=== PATIENT | male | born 1935 | race Caucasian/White ===

== ENCOUNTER 2023-01-14 12:00 | Day surgery (SDC) | payer MEDICARE, MEDICAID ==
[2023-01-07 09:43] LABS: BASOPHILS # (AUTO) 0.1 X10'3 (0-0.2); BASOPHILS % (AUTO) 1.4 % (0-1); EOSINOPHILS # (AUTO) 0.2 X10'3 (0-0.9); EOSINOPHILS % (AUTO) 3.3 % (0-6); LYMPHOCYTES # (AUTO) 0.7 X10'3 (1.1-4.8); LYMPHOCYTES % (AUTO) 14.3 % (21-51); MEAN CORPUSCULAR HEMOGLOBIN 32.5 PG (27.0-31.0); MEAN CORPUSCULAR HGB CONC 33.3 g/dL (33.0-36.5); MEAN CORPUSCULAR VOLUME 97.6 FL (78-98); MEAN PLATELET VOLUME 8.6 FL (7.4-10.4); MONOCYTES # (AUTO) 0.4 X10'3 (0-0.9); MONOCYTES % (AUTO) 8.7 % (2-12); NEUTROPHILS # (AUTO) 3.5 X10'3 (1.8-7.7); NEUTROPHILS % (AUTO) 72.3 % (42-75); PRE OP HEMATOCRIT 40.9 % (42.0-52.0); PRE OP HEMOGLOBIN 13.6 g/dL (14.0-17.9); PRE OP PLATELET COUNT 222 X10'3 (140-440); PRE OP WHITE BLOOD COUNT 4.9 10'3 (4.8-10.8); RED BLOOD COUNT 4.19 X10'6 (4.70-6.10); RED CELL DISTRIBUTION WIDTH 13.5 % (11.5-14.5)
[2023-01-07 10:13] LABS: ALBUMIN 3.8 G/DL (3.4-5.0); ALBUMIN/GLOBULIN RATIO 1.2 (1.1-1.5); ALKALINE PHOSPHATASE 83 IU/L (46-116); BLOOD UREA NITROGEN 24 MG/DL (7-18); BUN/CREATININE RATIO 19.2 (10.0-20.0); CALCIUM 9.4 MG/DL (8.5-10.1); CHLORIDE 102 MMOL/L (99-107); CREATININE 1.25 MG/DL (0.60-1.10); PRE OP ALT 18 U/L (30-65); PRE OP ANION GAP 6 (8-16); PRE OP AST 17 U/L (10-37); PRE OP BILIRUB, TOTAL 0.6 MG/DL (0.0-1.0); PRE OP GLUCOSE 102 MG/DL (70-104); PRE OP POTASSIUM 4.1 MMOL/L (3.4-5.1); PRE OP SODIUM 135 MMOL/L (135-145); TOTAL CARBON DIOXIDE 26.7 MMOL/L (24-32); TOTAL PROTEIN 7.1 G/DL (6.4-8.2); eGFR 55 ML/MIN
[~2023-01-14] VITALS: Ht 170.2 cm; Wt 69.7 kg
[~2023-01-14 12:00] MED LIST: CARV25TA3 PO; DOCUMENT DATE & TIME OF BETA-BLOCKER PO ONE; EMPA10TA PO; FURO40TA4 PO; INDOCYANINE GREEN 25 MG/10 ML VIAL IV ONE; PRAV40TA3 PO; SACU1TAB7 PO; SPIR25TA5 PO; WARF1TAB83 PO; cefazolin 2gm/D5W 100mL 100 ML IV ONE; famotidine 20mg tablet PO ONE; ringers solution, lacted 1,000 ML IV SCH
[2023-01-14 12:12] VITALS: BP 132/84; PULSE 64; RESP 16; TEMP 98.9; O2SAT 96
[2023-01-14] MEDS ORDERED: morphine 2 MG/ML inj. syringe IV PRN ×2 (14:20→14:40)
[2023-01-14] MEDS ORDERED: morphine 4 MG/ML inj SYRINge IV PRN ×2 (14:20→14:40)
[2023-01-14] MEDS ORDERED: meperidine/PF 25mg/ml syringe IV PRN ×6 (14:20→14:40)
[2023-01-14] MEDS ORDERED: ondansetron/PF 4mg/2ml inj IV PRN ×2 (14:20→14:40)
[2023-01-14] MEDS ORDERED: ringers solution, lacted 1,000 ML IV SCH ×2 (14:20→14:40)
[2023-01-14] MEDS ORDERED: proCHLORperazine 10 MG/2 ml inj IV PRN ×2 (14:20→14:40)
[2023-01-14 14:38] LABS: INR 1.4 INR; PROTHROMBIN TIME 14.3 SECONDS (9.0-12.0)
[2023-01-14] MEDS ORDERED: acetaminophen 1,000mg/100ml IV 100 ML IV PRN (14:40)
[2023-01-14] MEDS ORDERED: labetalol 20mg/4ml (5mg/ml) syringe IV PRN (14:40)
[2023-01-14] MEDS ORDERED: hydrALAZINE 20mg/ml inj. IV PRN (14:40)
[2023-01-14] MEDS ORDERED: midazolam 1 mg/ML 2ml injection ONE (15:46)
[2023-01-14] MEDS ORDERED: fentaNYL /PF 50mcg/ml 5ml ampule ONE (15:46)
[2023-01-14] MEDS ORDERED: LIDOcaine 1% (10mg/ml)w/preservative inj. 20ml MDV ONE (16:04)
[2023-01-14] MEDS ORDERED: BUPIVAcaine/PF 2.5mg/ml (0.25%) 10ml vial ONE (16:05)
[2023-01-14] MEDS ORDERED: flumazenil 0.1 mg/ml inj. IV ONE (16:12)
[2023-01-14] MEDS ORDERED: sevoflurane 250ml liquid IH ONE (16:12)
[2023-01-14] MEDS ORDERED: LIDOcaine 1% (10mg/ml) 2ml vial ONE (16:50)
[2023-01-14] MEDS ORDERED: dexamethasone sod phosphate 4mg/ml inj. ONE (16:50)
[2023-01-14] MEDS ORDERED: LIDOcaine 2% (20mg/ml) 5ml vial ONE (16:50)
[2023-01-14] MEDS ORDERED: propofol inj 20 ML IV ONE (16:50)
[2023-01-14] MEDS ORDERED: rocuronium 10mg/ml inj IV ONE (16:50)
[2023-01-14] MEDS ORDERED: ondansetron/PF 4mg/2ml inj ONE (16:50)
[2023-01-14] MEDS ORDERED: LIDOcaine 1% 30ml preserv. free vial IJ ONE (16:51)
[2023-01-14] MEDS ORDERED: BUPIVAcaine/PF 2.5mg/ml (0.25%) 10ml vial IJ ONE (16:52)
[2023-01-14] MEDS ORDERED: glycopyrrolate 0.2mg/ml inj ONE (16:59)
[2023-01-14] MEDS ORDERED: neostigmine methylsulfate 1 MG/ML 10ml vial ONE (16:59)
[2023-01-14] MEDS ORDERED: sugammadex 200mg/2ml injection IV ONE (17:16)
[2023-01-14 17:26] VITALS: BP 103/67; PULSE 70; RESP 10; O2SAT 93
--- NOTE | 2023-01-14 17:26 | NUR ---
Received from [place] via [facility], accompanied by Anesthesiologist DR. GAINES and report given by Anesthesiolgist. Rock.[id number]. RIGHT RADIAL ARTERIAL LINE. 8L MASK, ORAL AIRWAY.
[2023-01-14 17:36] VITALS: BP 127/83; PULSE 70; RESP 11; O2SAT 98
[2023-01-14] MEDS ORDERED: HYDROcodone/acetaminophen 5mg/325mg tablet PO PRN (17:40)
[2023-01-14 17:46] VITALS: BP 127/82; PULSE 69; RESP 11; O2SAT 99
[2023-01-14 17:56] VITALS: BP 132/83; PULSE 70; RESP 10; O2SAT 99
--- NOTE | 2023-01-14 18:00 | NUR ---
ARTERIAL LINE REMOVED
[2023-01-14 18:06] VITALS: BP 139/84; PULSE 70; RESP 15; O2SAT 93
--- NOTE | 2023-01-14 18:36 | NUR ---
I HAVE REVIEWED D/C INSTRUCTIONS WITH PATIENT AND SON, MARCEL AND THEY HAVE VERBALIZED UNDERSTANDING OF INSTRUCTIONS. PATIENT D/C HOME WITH ALL BELONGINGS AND FAMILY GAVE TRANSPORT.
== END 2023-01-14 18:36 | disposition home or self-care (01) ==
LOC: PAS 12:00
PROVIDERS: ATTEND Surgery
DX: K80.10 Calculus of gallbladder with chronic cholecystitis without obstruction (principal); I11.0 Hypertensive heart disease with heart failure; I50.9 Heart failure, unspecified; E11.9 Type 2 diabetes mellitus without complications; I48.91 Unspecified atrial fibrillation; E78.5 Hyperlipidemia, unspecified; M19.90 Unspecified osteoarthritis, unspecified site; Z87.891 Personal history of nicotine dependence; Z79.01 Long term (current) use of anticoagulants; Z79.899 Other long term (current) drug therapy; Z95.810 Presence of automatic (implantable) cardiac defibrillator
CPT/HCPCS: 36415; 47563; 80053; 82948; 85025; 85610; J0690; J1100; J2250; J2405; J2704; J2710; J3010; J3490; J7030; J7120; Z7506; Z7508; Z7512; A4215; A4618; A6258; A7000

== ENCOUNTER 2023-06-12 08:50 | Inpatient (IN) | payer MEDICARE, MEDICAID ==
[2023-06-12] VITALS (9 sets, daily range): BP systolic 90–107; BP diastolic 40–57; PULSE 70; RESP 13–21; TEMP 98.2–99.9
[~2023-06-12] VITALS: Ht 175.3 cm; Wt 64.0 kg
[~2023-06-12 08:50] MED LIST changes: -CARV25TA3 PO; +COR3.125T PO; -DOCUMENT DATE & TIME OF BETA-BLOCKER PO ONE; -EMPA10TA PO; -FURO40TA4 PO; -INDOCYANINE GREEN 25 MG/10 ML VIAL IV ONE; +LOSA25TA41 PO; -SACU1TAB7 PO; -SPIR25TA5 PO; -cefazolin 2gm/D5W 100mL 100 ML IV ONE; -famotidine 20mg tablet PO ONE; -ringers solution, lacted 1,000 ML IV SCH
[2023-06-12] MEDS ORDERED: pantoprazole 40mg IV 80 MG in normal saline 100ml IV soln 100 ML IV ONE (09:15)
[2023-06-12] MEDS: ondansetron/PF 4mg/2ml inj IV ONE (09:29)
[2023-06-12] MEDS: pantoprazole 40 MG vial IV ONE (09:35)
[2023-06-12] MEDS: normal saline 1000ML IV soln IVB ONE (09:38)
[2023-06-12] MEDS: HUM PROTHROMB CPLX-LANS 2,000 UNIT in IV piggyback 80 ML IV ONE (10:10)
[2023-06-12 10:27] LABS: BASOPHILS % (AUTO) 0.5 % (0-1); EOSINOPHILS % (AUTO) 0.1 % (0-6); HEMATOCRIT 22.5 % (42.0-52.0); HEMOGLOBIN 7.3 g/dl (14.0-17.9); LYMPHOCYTES # (AUTO) 0.7 X10'3 (1.1-4.8); LYMPHOCYTES % (AUTO) 7.6 % (21-51); MEAN CORPUSCULAR HEMOGLOBIN 29.7 PG (27.0-31.0); MEAN CORPUSCULAR HGB CONC 32.4 g/dL (33.0-36.5); MEAN CORPUSCULAR VOLUME 91.6 FL (78-98); MEAN PLATELET VOLUME 8.5 FL (7.4-10.4); MONOCYTES # (AUTO) 0.6 X10'3 (0-0.9); MONOCYTES % (AUTO) 6.1 % (2-12); NEUTROPHILS # (AUTO) 8.4 X10'3 (1.8-7.7); NEUTROPHILS % (AUTO) 85.7 % (42-75); PLATELET COUNT 403 X10'3 (140-440); RED BLOOD COUNT 2.46 X10'6 (4.70-6.10); WHITE BLOOD COUNT 9.8 X10'3 (4.5-11.0)
[2023-06-12 10:35] LABS: ALBUMIN 2.6 G/DL (3.4-5.0); ANION GAP 14 (8-16); APTT 37 SECONDS (22-32); BLOOD UREA NITROGEN 80 MG/DL (7-18); BUN/CREATININE RATIO 67.8 (10.0-20.0); CALCIUM 8.9 MG/DL (8.5-10.1); CHLORIDE 105 MMOL/L (99-107); CREATININE 1.18 MG/DL (0.60-1.10); GLUCOSE 107 MG/DL (70-104); INR 3.3 INR; POTASSIUM 5.5 MMOL/L (3.5-5.1); PROTHROMBIN TIME 32.8 SECONDS (9.0-12.0); SODIUM 140 MMOL/L (135-145); TOTAL CARBON DIOXIDE 21.4 MMOL/L (24-32); eCRCL 39 ML/MIN; eGFR 58 ML/MIN
[2023-06-12 12:07] LABS: OCCULT BLOOD STOOL POSITIVE (Neg)
[2023-06-12] MEDS: calcium gluconate inj. 2 GM in normal saline 100ml IV soln 100 ML IV ONE (12:19)
[2023-06-12] MEDS ORDERED: ondansetron/PF 4mg/2ml inj IV PRN (13:05)
[2023-06-12] MEDS: normal saline 1000ml 1,000 ML IV SCH (13:05)
[2023-06-12] MEDS ORDERED: potassium Cl 20 mEq SR tablet PO PRN ×2 (13:05)
[2023-06-12] MEDS ORDERED: magnesium 4gm in 100ml NS 100 ML IV PRN (13:05)
[2023-06-12] MEDS ORDERED: acetaminophen 325mg tablet PO PRN (13:05)
[2023-06-12] MEDS ORDERED: potassium Cl 40MEQ/1/2NS 520ml 520 ML IV PRN (13:05)
[2023-06-12] MEDS ORDERED: magnesium Cl slow-release 64mg tablet PO PRN (13:05)
[2023-06-12] MEDS ORDERED: pantoprazole 40MG/NS 100ML BAG 100 ML IV SCH ×2 (13:05→21:21)
[2023-06-12] MEDS ORDERED: magnesium 2GM in 50ml NS 50 ML IV PRN (13:05)
[2023-06-12] MEDS: ringers solution, lacted 1,000 ML IV ONE (13:29)
[2023-06-12 14:04] LABS: INR 1.4 INR
[2023-06-12] MEDS: ringers solution, lacted 1,000 ML IV SCH (14:15)
[2023-06-12] MEDS: pantoprazole 40MG/NS 100ML BAG 100 ML IV SCH ×2 (14:15→22:50)
[2023-06-12] MEDS ORDERED: MIDAZolam 1 MG/ML 5ML VIAL ONE (14:39)
[2023-06-12] MEDS ORDERED: LIDOcaine 2% Viscous 15ml cup ONE (14:39)
[2023-06-12] MEDS ORDERED: fentaNYL/PF 50MCG/1 ML 2ML syringe ONE (14:39)
[2023-06-12 20:02] LABS: HEMATOCRIT 28.7 % (42.0-52.0); HEMOGLOBIN 9.8 g/dl (14.0-17.9); MEAN CORPUSCULAR HEMOGLOBIN 30.4 PG (27.0-31.0); MEAN CORPUSCULAR VOLUME 89.3 FL (78-98); MEAN PLATELET VOLUME 8.3 FL (7.4-10.4); PLATELET COUNT 294 X10'3 (140-440); RED BLOOD COUNT 3.21 X10'6 (4.70-6.10); RED CELL DISTRIBUTION WIDTH 15.3 % (11.5-14.5); WHITE BLOOD COUNT 8.6 X10'3 (4.5-11.0)
[2023-06-13 02:00] VITALS: BP 117/65; PULSE 71; RESP 13; TEMP 97.5; O2SAT 94
[2023-06-13 06:00] VITALS: BP 106/56; PULSE 70; RESP 17; TEMP 98; O2SAT 95
[2023-06-13 07:50] LABS: BASOPHILS # (AUTO) 0.1 X10'3 (0-0.2); BASOPHILS % (AUTO) 0.8 % (0-1); EOSINOPHILS % (AUTO) 0.3 % (0-6); HEMATOCRIT 30.5 % (42.0-52.0); HEMOGLOBIN 9.6 g/dl (14.0-17.9); LYMPHOCYTES # (AUTO) 0.8 X10'3 (1.1-4.8); LYMPHOCYTES % (AUTO) 11.2 % (21-51); MEAN CORPUSCULAR HEMOGLOBIN 29.6 PG (27.0-31.0); MEAN CORPUSCULAR HGB CONC 31.6 g/dL (33.0-36.5); MEAN CORPUSCULAR VOLUME 93.7 FL (78-98); MEAN PLATELET VOLUME 8.3 FL (7.4-10.4); MONOCYTES # (AUTO) 0.6 X10'3 (0-0.9); MONOCYTES % (AUTO) 8.3 % (2-12); NEUTROPHILS # (AUTO) 5.7 X10'3 (1.8-7.7); NEUTROPHILS % (AUTO) 79.4 % (42-75); PLATELET COUNT 255 X10'3 (140-440); RED BLOOD COUNT 3.25 X10'6 (4.70-6.10); RED CELL DISTRIBUTION WIDTH 16.3 % (11.5-14.5); WHITE BLOOD COUNT 7.2 X10'3 (4.5-11.0)
[2023-06-13 08:18] LABS: ALANINE AMINOTRANSFERASE 16 U/L (12-78); ALBUMIN 2.2 G/DL (3.4-5.0); ALBUMIN/GLOBULIN RATIO 0.6 (1.1-1.5); ALKALINE PHOSPHATASE 123 IU/L (46-116); ANION GAP 8 (8-16); ASPARTATE AMINO TRANSFERASE 23 U/L (10-37); BILIRUBIN,TOTAL 0.7 MG/DL (0.1-1.0); BLOOD UREA NITROGEN 47 MG/DL (7-18); BUN/CREATININE RATIO 57.3 (10.0-20.0); CALCIUM 8.3 MG/DL (8.5-10.1); CHLORIDE 109 MMOL/L (99-107); CREATININE 0.82 MG/DL (0.60-1.10); GLUCOSE 80 MG/DL (70-104); POTASSIUM 4.3 MMOL/L (3.5-5.1); SODIUM 137 MMOL/L (135-145); TOTAL CARBON DIOXIDE 19.6 MMOL/L (24-32); TOTAL PROTEIN 5.9 G/DL (6.4-8.2); eCRCL 56 ML/MIN; eGFR 89 ML/MIN
[2023-06-13 11:00] VITALS: BP 106/65; PULSE 70; RESP 15; TEMP 98.2; O2SAT 96
[2023-06-13 12:17] LABS: BASOPHILS # (AUTO) 0.1 X10'3 (0-0.2); MONOCYTES # (AUTO) 0.6 X10'3 (0-0.9)
[2023-06-13 12:21] LABS: BASOPHILS % (AUTO) 0.9 % (0-1); EOSINOPHILS % (AUTO) 0.2 % (0-6); HEMATOCRIT 29.1 % (42.0-52.0); HEMOGLOBIN 9.5 g/dl (14.0-17.9); LYMPHOCYTES # (AUTO) 0.9 X10'3 (1.1-4.8); LYMPHOCYTES % (AUTO) 12.3 % (21-51); MEAN CORPUSCULAR HEMOGLOBIN 29.5 PG (27.0-31.0); MEAN CORPUSCULAR HGB CONC 32.6 g/dL (33.0-36.5); MEAN CORPUSCULAR VOLUME 90.7 FL (78-98); MEAN PLATELET VOLUME 8.2 FL (7.4-10.4); MONOCYTES % (AUTO) 7.7 % (2-12); NEUTROPHILS % (AUTO) 78.9 % (42-75); PLATELET COUNT 279 X10'3 (140-440); RED CELL DISTRIBUTION WIDTH 16.1 % (11.5-14.5); WHITE BLOOD COUNT 7.6 X10'3 (4.5-11.0)
[2023-06-13 15:00] VITALS: BP 122/81; PULSE 70; RESP 19; TEMP 97.8; O2SAT 98
[2023-06-13 18:00] VITALS: BP 133/67; PULSE 62; RESP 20; TEMP 97; O2SAT 98
[2023-06-13] MEDS: ringers solution, lacted 1,000 ML IV SCH (19:55)
[2023-06-13] MEDS: pravastatin 40mg tablet PO SCH (21:43)
[2023-06-13] MEDS: pantoprazole 40mg Tablet.DR PO SCH (21:43)
[2023-06-13 22:00] VITALS: BP 122/68; PULSE 70; RESP 20; TEMP 97.8; O2SAT 95
[2023-06-13 22:36] LABS: INR 2.2 INR; PROTHROMBIN TIME 21.8 SECONDS (9.0-12.0)
[2023-06-13] MEDS ORDERED: warfarin 1mg tablet PO ONE (23:15)
[2023-06-14 02:40] VITALS: BP 133/51; PULSE 59; RESP 20; TEMP 97.4; O2SAT 98
[2023-06-14 06:00] VITALS: BP 139/79; PULSE 61; RESP 14; TEMP 96.9; O2SAT 93
[2023-06-14] MEDS ORDERED: pantoprazole 40mg Tablet.DR PO SCH (07:30)
[2023-06-14 08:00] VITALS: RESP 14; O2SAT 61
[2023-06-14] MEDS: [UNRECOGNIZED DRUG - REMARK] IV NR (10:31)
[2023-06-14 12:00] LABS: BASOPHILS # (AUTO) 0.1 X10'3 (0-0.2); BASOPHILS % (AUTO) 0.7 % (0-1); EOSINOPHILS # (AUTO) 0.1 X10'3 (0-0.9); EOSINOPHILS % (AUTO) 0.7 % (0-6); HEMATOCRIT 27.2 % (42.0-52.0); HEMOGLOBIN 8.8 g/dl (14.0-17.9); LYMPHOCYTES # (AUTO) 0.7 X10'3 (1.1-4.8); LYMPHOCYTES % (AUTO) 10.4 % (21-51); MEAN CORPUSCULAR HEMOGLOBIN 29.8 PG (27.0-31.0); MEAN CORPUSCULAR HGB CONC 32.4 g/dL (33.0-36.5); MEAN PLATELET VOLUME 8.2 FL (7.4-10.4); MONOCYTES # (AUTO) 0.6 X10'3 (0-0.9); MONOCYTES % (AUTO) 8.6 % (2-12); NEUTROPHILS # (AUTO) 5.7 X10'3 (1.8-7.7); NEUTROPHILS % (AUTO) 79.6 % (42-75); PLATELET COUNT 283 X10'3 (140-440); RED BLOOD COUNT 2.96 X10'6 (4.70-6.10); WHITE BLOOD COUNT 7.2 X10'3 (4.5-11.0)
[2023-06-14 12:08] LABS: INR 2.2 INR; PROTHROMBIN TIME 22.4 SECONDS (9.0-12.0)
[2023-06-14 12:21] LABS: ALANINE AMINOTRANSFERASE 28 U/L (12-78); ALBUMIN 2.5 G/DL (3.4-5.0); ALBUMIN/GLOBULIN RATIO 0.7 (1.1-1.5); ALKALINE PHOSPHATASE 124 IU/L (46-116); ANION GAP 9 (8-16); ASPARTATE AMINO TRANSFERASE 34 U/L (10-37); BILIRUBIN,TOTAL 0.4 MG/DL (0.1-1.0); BLOOD UREA NITROGEN 27 MG/DL (7-18); BUN/CREATININE RATIO 29.3 (10.0-20.0); CALCIUM 8.5 MG/DL (8.5-10.1); CHLORIDE 109 MMOL/L (99-107); CREATININE 0.92 MG/DL (0.60-1.10); GLUCOSE 101 MG/DL (70-104); POTASSIUM 4.1 MMOL/L (3.5-5.1); SODIUM 142 MMOL/L (135-145); TOTAL CARBON DIOXIDE 23.8 MMOL/L (24-32); TOTAL PROTEIN 5.9 G/DL (6.4-8.2); eCRCL 50 ML/MIN; eGFR 78 ML/MIN
[2023-06-14] MEDS: acetaminophen 325mg tablet PO PRN (13:06)
[2023-06-14 15:00] VITALS: BP 98/57; PULSE 70; RESP 19; TEMP 97.7; O2SAT 95
[2023-06-14 18:00] VITALS: BP 130/66; PULSE 71; RESP 13; TEMP 97.6; O2SAT 97
[2023-06-14] MEDS: furosemide 40mg/4ml inj IV ONE (19:56)
[2023-06-14] MEDS: acetaminophen 325mg tablet PO SCH (19:57)
[2023-06-14] MEDS: LIDOcaine 5% patch TP SCH (19:59)
[2023-06-14] MEDS ORDERED: warfarin 1mg tablet PO ONE (21:00)
[2023-06-14 22:00] VITALS: BP 126/57; PULSE 70; RESP 17; TEMP 97.1; O2SAT 95
[2023-06-15] MEDS: furosemide 20 MG/2 ML vial IV SCH (10:04)
[2023-06-15 11:06] VITALS: BP 115/66; PULSE 74; RESP 20; TEMP 97.8; O2SAT 97
[2023-06-15 12:35] VITALS: RESP 18; O2SAT 97
[2023-06-15 12:52] LABS: INR 2.5 INR; PROTHROMBIN TIME 24.6 SECONDS (9.0-12.0)
[2023-06-15 13:02] LABS: BASOPHILS % (AUTO) 0.3 % (0-1); EOSINOPHILS % (AUTO) 0.3 % (0-6); HEMATOCRIT 27.7 % (42.0-52.0); HEMOGLOBIN 9.3 g/dl (14.0-17.9); LYMPHOCYTES # (AUTO) 0.6 X10'3 (1.1-4.8); LYMPHOCYTES % (AUTO) 8.1 % (21-51); MEAN CORPUSCULAR HEMOGLOBIN 30.5 PG (27.0-31.0); MEAN CORPUSCULAR HGB CONC 33.4 g/dL (33.0-36.5); MEAN CORPUSCULAR VOLUME 91.3 FL (78-98); MEAN PLATELET VOLUME 8.6 FL (7.4-10.4); MONOCYTES # (AUTO) 0.9 X10'3 (0-0.9); MONOCYTES % (AUTO) 11.5 % (2-12); NEUTROPHILS % (AUTO) 79.8 % (42-75); PLATELET COUNT 291 X10'3 (140-440); RED BLOOD COUNT 3.04 X10'6 (4.70-6.10); RED CELL DISTRIBUTION WIDTH 15.9 % (11.5-14.5); WHITE BLOOD COUNT 7.5 X10'3 (4.5-11.0)
[2023-06-15 13:05] LABS: ALANINE AMINOTRANSFERASE 26 U/L (12-78); ALBUMIN 2.5 G/DL (3.4-5.0); ALBUMIN/GLOBULIN RATIO 0.7 (1.1-1.5); ALKALINE PHOSPHATASE 124 IU/L (46-116); ANION GAP 4 (8-16); ASPARTATE AMINO TRANSFERASE 24 U/L (10-37); BLOOD UREA NITROGEN 19 MG/DL (7-18); BUN/CREATININE RATIO 21.8 (10.0-20.0); CALCIUM 8.5 MG/DL (8.5-10.1); CHLORIDE 103 MMOL/L (99-107); CREATININE 0.87 MG/DL (0.60-1.10); GLUCOSE 97 MG/DL (70-104); POTASSIUM 3.3 MMOL/L (3.5-5.1); SODIUM 137 MMOL/L (135-145); TOTAL CARBON DIOXIDE 29.6 MMOL/L (24-32); TOTAL PROTEIN 6.2 G/DL (6.4-8.2); eCRCL 53 ML/MIN; eGFR 83 ML/MIN
[2023-06-15] MEDS ORDERED: phytonadione inj. 2 MG in normal saline 100ml IV soln 100 ML IV ONE (14:20)
[2023-06-15 15:00] VITALS: BP 101/57; PULSE 70; RESP 16; TEMP 97.9; O2SAT 93
[2023-06-15 15:34] LABS: CREATINE KINASE 77 U/L (39-308); LIPASE 13 U/L (16-77); MAGNESIUM 1.8 MG/DL (1.5-2.4); PRO BRAIN NATRIURETIC PEPTIDE 13915 PG/ML (0-450)
[2023-06-15] MEDS ORDERED: potassium Cl 20 mEq SR tablet PO PRN (15:50)
[2023-06-15] MEDS ORDERED: magnesium 2GM in 50ml NS 50 ML IV PRN (15:50)
[2023-06-15] MEDS ORDERED: magnesium 4gm in 100ml NS 100 ML IV PRN (15:50)
[2023-06-15] MEDS ORDERED: potassium Cl 40MEQ/1/2NS 520ml 520 ML IV PRN (15:50)
[2023-06-15] MEDS ORDERED: magnesium Cl slow-release 64mg tablet PO PRN (15:50)
[2023-06-15] MEDS: magnesium oxide 400mg tablet PO ONE (16:04)
[2023-06-15] MEDS: potassium Cl 20 mEq SR tablet PO PRN (16:04)
[2023-06-15 18:00] VITALS: BP 119/92; PULSE 70; RESP 19; TEMP 97.8; O2SAT 98
[2023-06-15 20:00] VITALS: RESP 18; O2SAT 98
[2023-06-15] MEDS: K and/or MAG REPLACEMENT MC SCH (20:00)
[2023-06-15 22:00] VITALS: BP 111/57; PULSE 68; RESP 18; TEMP 98.1; O2SAT 97
[2023-06-16 02:00] VITALS: BP 133/77; PULSE 70; RESP 18; TEMP 97.8; O2SAT 97
[2023-06-16 06:00] VITALS: BP 136/76; PULSE 72; RESP 20; TEMP 97.8; O2SAT 96
[2023-06-16 07:03] LABS: INR 1.9 INR; PROTHROMBIN TIME 19.8 SECONDS (9.0-12.0)
[2023-06-16 07:04] LABS: ALANINE AMINOTRANSFERASE 22 U/L (12-78); ALBUMIN 2.4 G/DL (3.4-5.0); ALBUMIN/GLOBULIN RATIO 0.6 (1.1-1.5); ALKALINE PHOSPHATASE 117 IU/L (46-116); ANION GAP 9 (8-16); ASPARTATE AMINO TRANSFERASE 21 U/L (10-37); BILIRUBIN,TOTAL 0.6 MG/DL (0.1-1.0); BLOOD UREA NITROGEN 18 MG/DL (7-18); BUN/CREATININE RATIO 20.7 (10.0-20.0); CALCIUM 8.7 MG/DL (8.5-10.1); CHLORIDE 105 MMOL/L (99-107); CREATININE 0.87 MG/DL (0.60-1.10); GLUCOSE 95 MG/DL (70-104); POTASSIUM 4.3 MMOL/L (3.5-5.1); SODIUM 139 MMOL/L (135-145); TOTAL CARBON DIOXIDE 25.2 MMOL/L (24-32); TOTAL PROTEIN 6.1 G/DL (6.4-8.2); eCRCL 53 ML/MIN; eGFR 83 ML/MIN
[2023-06-16 11:00] VITALS: BP 134/71; PULSE 71; RESP 16; TEMP 98.3; O2SAT 97
[2023-06-16] MEDS: magnesium hydroxide 30ml (MOM) UD suspension PO ONE (11:41)
[2023-06-16] MEDS: metoprolol succinate 25mg (24-HOUR) SR. Tablet PO SCH (14:15)
[2023-06-16 15:00] VITALS: BP 116/76; PULSE 72; RESP 18; TEMP 98.3; O2SAT 100
[2023-06-16 17:59] LABS: OCCULT BLOOD STOOL POSITIVE (Neg)
[2023-06-16 18:00] VITALS: BP 138/80; PULSE 71; RESP 17; TEMP 98.3; O2SAT 95
[2023-06-16 22:00] VITALS: BP 126/80; PULSE 69; RESP 12; TEMP 97.7; O2SAT 95
[2023-06-17 02:00] VITALS: BP 142/81; PULSE 70; RESP 14; TEMP 97.5; O2SAT 98
[2023-06-17 06:00] VITALS: BP 135/71; PULSE 71; RESP 12; TEMP 97.6; O2SAT 99
[2023-06-17 08:07] LABS: INR 1.8 INR; PROTHROMBIN TIME 18.5 SECONDS (9.0-12.0)
[2023-06-17 08:28] LABS: ALANINE AMINOTRANSFERASE 17 U/L (12-78); ALBUMIN 2.2 G/DL (3.4-5.0); ALBUMIN/GLOBULIN RATIO 0.6 (1.1-1.5); ALKALINE PHOSPHATASE 119 IU/L (46-116); ANION GAP 4 (8-16); ASPARTATE AMINO TRANSFERASE 17 U/L (10-37); BILIRUBIN,TOTAL 0.5 MG/DL (0.1-1.0); BLOOD UREA NITROGEN 16 MG/DL (7-18); BUN/CREATININE RATIO 20.8 (10.0-20.0); CALCIUM 8.5 MG/DL (8.5-10.1); CHLORIDE 100 MMOL/L (99-107); CREATININE 0.77 MG/DL (0.60-1.10); GLUCOSE 88 MG/DL (70-104); MAGNESIUM 2.1 MG/DL (1.5-2.4); POTASSIUM 4.3 MMOL/L (3.5-5.1); SODIUM 132 MMOL/L (135-145); TOTAL CARBON DIOXIDE 28.3 MMOL/L (24-32); eCRCL 60 ML/MIN; eGFR > 90 ML/MIN
[2023-06-17 11:00] VITALS: BP 136/61; PULSE 70; RESP 17; TEMP 98; O2SAT 99
[2023-06-17] MEDS ORDERED: PANT40TA54 PO (12:46)
== END 2023-06-17 14:11 | DRG 377 ==
LOC: ER 08:51 → ED HOLD 13:06 → UNDOADMIN 13:50 → ED HOLD 13:50 → PCU 3S 06-13 00:58 → ED HOLD 06-13 00:58
PROVIDERS: ADMIT Internal Medicine; ATTEND Family Medicine
PROC: 30233N1 Transfusion of Nonautologous Red Blood Cells into Peripheral Vein, Percutaneous Approach (ICD-10-PCS; 2023-06-12)
PROC: 30233K1 Transfusion of Nonautologous Frozen Plasma into Peripheral Vein, Percutaneous Approach (ICD-10-PCS; principal; 2023-06-15)
PROC: CD171ZZ Planar Nuclear Medicine Imaging of Gastrointestinal Tract using Technetium 99m (Tc-99m) (ICD-10-PCS; 2023-06-15)
DX: K92.2 Gastrointestinal hemorrhage, unspecified (principal); R57.0 Cardiogenic shock; N17.9 Acute kidney failure, unspecified; I82.612 Acute embolism and thrombosis of superficial veins of left upper extremity; D68.9 Coagulation defect, unspecified; I10 Essential (primary) hypertension; M25.552 Pain in left hip; E78.00 Pure hypercholesterolemia, unspecified; M79.89 Other specified soft tissue disorders; I48.91 Unspecified atrial fibrillation; E87.5 Hyperkalemia; D50.0 Iron deficiency anemia secondary to blood loss (chronic); R60.0 Localized edema; Z79.01 Long term (current) use of anticoagulants; Z95.0 Presence of cardiac pacemaker
CPT/HCPCS: 36415; 36430; 71045; 73502; 78278; 80048; 80053; 82272; 82550; 83690; 83735; 83880; 84484; 85025; 85027; 85610; 85730; 86885; 86900; 86901; 86920; 87081; 93005; 93970; 97116; 97161; 97530; 97535; 99291; A6213; A6258; A6590; A9560; C9113; G0378; J0610; J1940; J2250; J2405; J3010; J3490; J7030; J7040; J7120; J7168; P9016; P9059